=== PATIENT | female | born 1975 | race Caucasian/White ===

== ENCOUNTER 2017-05-12 09:02 | Day surgery (SDC) | payer OTHER ==
[~2017-05-12] VITALS: Ht 160 cm; Wt 67.5 kg
[~2017-05-12 09:02] MED LIST: BENADRYL25 MG PO; CLARITIN10 M3 PO; ENDOCET 5-3251 EACH PO; MOTRIN800 MG PO; PROBIOTIC1 EAC1 PO; SINGULAIR10 MG PO; SUDAFED 12-HOU120 MG PO; WOMEN MULTIVIT1 EACH PO
[2017-05-12 09:29] VITALS: BP 102/67
[2017-05-12] MEDS ORDERED: HYDROCODON-ACE1 EAC7 PO (13:45)
[2017-05-12 14:25] VITALS: BP 101/61
[2017-05-12 15:25] VITALS: BP 113/65
== END 2017-05-12 15:30 | disposition home or self-care (01) ==
LOC: SDC 09:02
PROC: 0HBU0ZX Excision of Left Breast, Open Approach, Diagnostic (ICD-10-PCS; principal; 2017-05-12)
DX: D24.2 Benign neoplasm of left breast (principal); I10 Essential (primary) hypertension; M51.16 Intervertebral disc disorders with radiculopathy, lumbar region; J45.909 Unspecified asthma, uncomplicated; Z80.3 Family history of malignant neoplasm of breast; Z88.0 Allergy status to penicillin; Z88.2 Allergy status to sulfonamides
CPT/HCPCS: 88307; J0131; J1100; J1885; J2250; J2405; J2765; J3010; S0020